=== PATIENT | female | born 1960 | race Caucasian/White ===

== ENCOUNTER 2019-03-10 11:14 | Inpatient (IN) | payer OTHER ==
[2019-03-03 14:49] VITALS: BMI 25.6
--- NOTE | 2019-03-07 15:59 | HP ---
Admitting History and Physical - Primary Care Physician PCP: Giuliano White - Admission Chief Complaint: Left breast cancer History of Present Illness: 58 year old postmenapausal Ashkenazi female and sephartic heritage who had changes in her left nipple and was seen by master certified rv technician and was treated with a cream. 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 She had breast MRI 01/25/2019 showing left breast enhancements and MRI core biopsies revealed 1:00 showing PASH and 4:00 benign UDH. This was reviewed by our pathologist and confirmed this was a Pagets and was ER/DE negative and HER2 3+. Myrisk was negative. History Source: Patient Limitations to Obtaining History: No Limitations - Past Medical History Endocrine: Yes: Other (hashimotos) Additional Past Medical History: Mohs surgery basal cell forehead - Past Surgical History Additional Past Surgical History: unilateral oophorectomy benign 2001 - Smoking History Smoking history: Never smoked Have you smoked in the past 12 months: No - Alcohol/Substance Use Hx Alcohol Use: Yes (social) Home Medications - Allergies Allergies/Adverse Reactions: Allergies Allergy/AdvReac Type Severity Reaction Status Date / Time Penicillins Allergy Verified 01/27/19 11:39 - Home Medications Home Medications: Ambulatory Orders Levothyroxine [Synthroid -] 50 mcg PO DAILY 03/03/19 Family Medical History Other Family History: mother bladder ca 62. pat GF throat ca. mat uncle lung ca 75. mat GM melanoma 70. mat uncle melanoma 65 Physical Examination Constitutional: Yes: Well Nourished Breast(s): Yes: Other (C cup sized breasts no palpable masses bilaterally or adenopathy post bx changes from biopsies left breast residual scarring left nipple from biopsy but on signs of pagets dz such as redeness or scaling) Problem List - Problems (1) Breast cancer, left breast Code(s): C50.912 - MALIGNANT NEOPLASM OF UNSPECIFIED SITE OF LEFT FEMALE BREAST Qualifiers: Breast location: nipple Estrogen receptor status: negative Patient sex: female Qualified Code(s): C50.012 - Malignant neoplasm of nipple and areola, left female breast; Z17.1 - Estrogen receptor negative status [ER-] Assessment/Plan Bilateral total mastectomies, left sentenel node biopsy ,lymphoscintogram , posible axillary node dissection, implants and alloderm reconstruction
[2019-03-10] MEDS ORDERED: GENTAMICIN SO4 80 MG/2 ML VIAL ONE (13:26)
[2019-03-10] MEDS ORDERED: BUPIVACAINE HCL/PF 2.5 MG/ML - 30 ML VIAL IJ ONE (13:26)
[2019-03-10] MEDS ORDERED: ceFAZolin SODIUM 1 GM VIAL ONE ×2 (13:26→16:37)
[2019-03-10] MEDS ORDERED: LIDOCAINE HCL 1% PRESERVATIVE FREE - 30ML VIAL ONE (13:27)
[2019-03-10] MEDS ORDERED: BUPIVACAINE LIPOSOME/PF (EXPAREL) 266 MG/20 ML VIAL ONE (13:30)
[2019-03-10] MEDS ORDERED: SODIUM CHLORIDE 0.9% P/F 10 ML VIAL IJ ONE (13:31)
[2019-03-10] MEDS ORDERED: ROCURONIUM BROMIDE 50 MG/5 ML SYRINGE ONE (14:33)
[2019-03-10] MEDS ORDERED: LIDOCAINE HCL/PF 2% SDV 5ML VIAL ONE ×2 (14:33→16:37)
[2019-03-10] MEDS ORDERED: SUCCINYLCHOLINE CHLORIDE 200 MG/10 ML SYRINGE ONE (14:33)
[2019-03-10] MEDS ORDERED: MIDAZOLAM HCL 2 MG/2 ML SINGLE DOSE VIAL ONE (14:33)
[2019-03-10] MEDS ORDERED: PROPOFOL 20 ML ONE ×3 (14:33)
[2019-03-10] MEDS ORDERED: fentaNYL CITRATE 250 MCG/5 ML VIAL ONE (14:33)
[2019-03-10] MEDS ORDERED: ISOSULFAN BLUE 10 MG/ML VIAL SQ ONE (15:59)
[2019-03-10] MEDS ORDERED: ePHEDrine SULFATE 50 MG/1 ML AMPULE ONE (16:13)
[2019-03-10] MEDS ORDERED: KETOROLAC TROMETHAMINE 30 MG/1 ML VIAL ONE (16:37)
[2019-03-10] MEDS ORDERED: DEXAMETHASONE SOD PHOSPHATE 4 MG/1 ML VIAL ONE (16:37)
[2019-03-10] MEDS ORDERED: ONDANSETRON 4 MG/2 ML VIAL ONE (16:37)
[2019-03-10] MEDS ORDERED: LIDOCAINE HCL 2% JELLY (5 ML/TUBE) ONE (16:37)
[2019-03-10] MEDS ORDERED: ONDANSETRON 4 MG/2 ML VIAL IVPUSH PRN ×3 (17:38→18:37)
[2019-03-10] MEDS ORDERED: ZOLPIDEM TARTRATE 5 MG TABLET PO PRN (17:39)
[2019-03-10] MEDS ORDERED: oxyCODONE HCL 5 MG TABLET PO PRN ×3 (17:39→18:37)
[2019-03-10] MEDS ORDERED: ACETAMINOPHEN 325 MG TABLET (FP) PO PRN ×2 (17:39→17:46)
[2019-03-10] MEDS ORDERED: diazePAM 5 MG TABLET PO PRN (17:41)
[2019-03-10] MEDS ORDERED: DEXTROSE 5%-0.45% SALINE 1,000 ML IV SCH (17:45)
[2019-03-10] MEDS ORDERED: NEOSTIGMINE METHYLSULFATE 0.5 MG/ML - 10 ML MDV ONE (17:56)
[2019-03-10] MEDS ORDERED: CLINDAMYCIN 300 MG PREMIX IVPB 300 MG/50 ML BAG IVPB SCH (18:00)
[2019-03-10] MEDS ORDERED: GLYCOPYRROLATE 0.2 MG/1 ML VIAL ONE (18:12)
--- NOTE | 2019-03-10 18:33 | OP ---
Operative Note - Note: Operative Date: 03/10/19 Pre-Operative Diagnosis: bilateral breast cancer Operation: bilateral mastectomy with left sentinel node biopsy, breast reconstruction with implants and ADN Surgeon: Uli Colon Electrical Parts Reconditioner: Chanel Beth Anesthesiologist/PROSPECT MANAGER: Shlomo Asher Anesthesia: General Estimated Blood Loss (mls): 30 Fluid Volume Replaced (mls): 1,000 Operative Report Dictated: Yes
[2019-03-10] MEDS ORDERED: PROMETHAZINE HCL 25 MG/1 ML VIAL IVPB PRN (18:37)
--- NOTE | 2019-03-10 18:38 | SURG ---
Surgery Stringed Instrument Tuner Note Stringed Instrument Tuner: Chanel Beth PA-C Date of Service: 03/10/19 Diagnosis: bilateral breast cancer Procedure: bilateral mastectomy with left sentinel node biopsy, breast reconstruction with implants and ADN I was present for the entirety of the operative procedure. For further detail, please refer to operative report. Visit type - Case Type Case Type: Scheduled - Emergency Emergency Visit: No - New patient This patient is new to me today: Yes Date on this admission: 03/10/19
--- NOTE | 2019-03-10 18:43 | OP ---
DATE OF OPERATION: 03/10/2019 PREOPERATIVE DIAGNOSIS: Left nipple Paget disease. POSTOPERATIVE DIAGNOSIS: Left nipple Paget disease. PROCEDURE: Bilateral total mastectomies with left axillary sentinel lymph node biopsy and bilateral direct implant reconstruction. ANESTHESIA: General endotracheal anesthesia. PRIMARY SURGEON: Giuliano White MD MANAGER MEMBERSHIP: DALLAS Browne Primary surgeon for the bilateral direct implant reconstruction is Dr. Giuliano Colon. There were no complications. Briefly, the patient is a 58-year-old, G3, P2, postmenopausal white female, with Ashkenazi and Sephardic Orthodoxy heritage. She has a family history of cancer, with her mother had bladder cancer at age 62 and a paternal grandfather who had throat cancer at age 62, her maternal uncle had lung cancer, and she has a maternal grandmother who had melanoma as well as maternal uncle who had melanoma. The patient noted some changes in the left nipple in June 2018 and was using topical creams. She eventually underwent a shave biopsy of the left nipple in December 2018, which showed Paget disease which was ER/VA negative. Slide review confirmed this. The patient underwent an MRI showing no other suspicious bindings. She was given the option of central wide excision, removing the nipple-areolar complex, but chose to undergo bilateral total mastectomies. She was seen by the plastic surgeon preoperatively and chose to have direct implant reconstructions. She understood the need to remove the nipple on the left side as well as a sentinel lymph node biopsy at the time of the mastectomy, and she chose to have a prophylactic contralateral right breast mastectomy despite the lack of any survival advantage. The patient was brought in for the procedure on March 10, 2019. She first went to [facility], where lymphoscintigraphy was performed with a periareolar injection of technetium-99 around the left breast nipple-areolar complex. She was then brought to the [place] holding area. In the holding area, site verification was made and informed consent was obtained. She was marked preoperatively by the plastic surgeon. She was brought in to the operating room and laid on the OR table in the supine position. Venodynes were placed on the lower extremities prior to induction. She received 2 g of Ancef prior to incision. Then 3 mL of Lymphazurin blue was injected intradermally around the left breast nipple-areolar complex. Massage was instituted. She was sterilely prepped and draped in the usual fashion and underwent general laryngeal mask airway anesthesia. Timeout was performed. At this point, the left axillary sentinel lymph node biopsy was first performed. Incision was made just below the hair-bearing area of the left axilla and dissection was undertaken and a blue lymphatic was easily seen coursing to a blue hot lymph node. This had a 10-second gamma count of 1063 and was sent for frozen section, came back negative. Background counts after removal of this one node was 53. Hemostasis was achieved. At this point, a total mastectomy was performed through an elliptical periareolar approach on the left breast nipple-areolar complex. Skin flap was raised, using the PEAK radiofrequency device, superiorly to the level of the clavicle, medially to the level of the sternum, laterally to the level of the latissimus, and inferiorly below the level of the inframammary fold. The breast was taken down off the pectoralis major muscle from medial to lateral using electrocautery and completely removed intact. It was oriented with a long lateral and short superior suture and weighed to allow for appropriate cosmetic result. No specimen x-ray was performed since there was no clip in the breast. Hemostasis was achieved and the skin flaps were trimmed for good cosmetic result. The wound was copiously irrigated with warm sterile saline. At this point, instruments and gloves were changed and the right breast was approached. Again, an elliptical incision was made around the nipple-areolar complex to perform the mastectomy. On the right side, a little more skin was removed due to some asymmetry, with the right breast being larger than the left. Again, skin flap was raised using the PEAK radiofrequency device, raising the skin flap superiorly to the level of the clavicle, medially to the level of the sternum, laterally to the level of the latissimus, and inferiorly to the level of the inframammary fold. The breast was taken down off the pectoralis major muscle using electrocautery from medial to lateral and completely removed intact. It was oriented with a long lateral and short superior suture and weighed to allow for appropriate cosmetic result. Hemostasis was achieved and the skin flaps were trimmed for good cosmetic result. At this point, Dr. Colon became the primary surgeon and performed bilateral direct implant reconstruction using acellular dermal matrix. This will be dictated separately by Dr. Colon. Drains will be placed around each implant and brought through separate stab incisions on the lateral skin flaps and secured in place using 3-0 nylon suture. All wounds will be closed separately by Plastic Surgery using absorbable monofilament suture. All sponge and needle counts were correct at this point in the case. Estimated blood loss was about 100 mL. She was hemodynamically stable throughout the case. The patient will be recovered in the post-anesthesia care unit and then will be admitted postoperatively for pain management and wound management. We did use a SPY skin perfusion device during the case, which showed good skin perfusion on both mastectomy skin flaps. Sadaf [id number]
[2019-03-10] MEDS ORDERED: HYDROmorphone HCL CARPU-JECT 1 MG/1 ML DISP.SYRIN ONE (19:45)
[2019-03-10] MEDS ORDERED: FAMOTIDINE 20 MG/50 ML IVPB 20 MG/50 ML MG IVPB ONE (19:55)
[2019-03-10] MEDS ORDERED: HYDROmorphone HCL CARPU-JECT 1 MG/1 ML DISP.SYRIN IVPUSH ONE (19:55)
[2019-03-10] MEDS ORDERED: DEXAMETHASONE SOD PHOSPHATE 4 MG/1 ML VIAL IVPUSH ONE ×2 (19:55)
[2019-03-10] MEDS ORDERED: FAMOTIDINE 20 MG PREMIXED IVPB IVPB ONE (20:00)
[2019-03-10] MEDS: oxyCODONE HCL 5 MG TABLET PO PRN (21:15)
[2019-03-10] MEDS: CLINDAMYCIN 300 MG PREMIX IVPB 300 MG/50 ML BAG IVPB SCH (21:16)
[2019-03-10] MEDS: DEXTROSE 5%-0.45% SALINE 1,000 ML IV SCH (21:16)
[2019-03-11] MEDS: CLINDAMYCIN 300 MG PREMIX IVPB 300 MG/50 ML BAG IVPB SCH ×3 (05:00→20:17)
[2019-03-11] MEDS: ACETAMINOPHEN 325 MG TABLET (FP) PO PRN ×2 (08:04→17:40)
[2019-03-11] MEDS: HEPARIN NA (PORCINE) 5,000 UNITS/ML 1ML VIAL SQ SCH ×3 (08:04→21:47)
[2019-03-11] MEDS: oxyCODONE HCL 5 MG TABLET PO PRN ×4 (08:06→21:42)
[2019-03-11 08:12] LABS: HEMATOCRIT 29.8 % (32.4-45.2); HEMOGLOBIN 10.2 GM/dl (10.7-15.3); MCH 31.9 pg (25.7-33.7); MCHC 34.3 g/dl (32.0-36.0); MEAN CELL VOLUME 93.1 fl (80-96); MEAN PLT VOLUME 7.9 fl (7.5-11.1); PLATELET COUNT 283 K/MM3 (134-434); RDW 12.7 % (11.6-15.6); WHITE BLOOD COUNT 11.1 K/mm3 (4.0-10.8)
--- NOTE | 2019-03-11 08:30 | PN ---
Progress Note (short form) - Note Progress Note: POD 1, s/p bilateral mastectomies with left sentinel node biopsy, breast reconstruction with implants and ADN Pt seen and examined. Reports pain well controlled overnight. Tolerated small amounts of food with no emesis. Has been oob to restroom voiding without issue. Denies cp/sob, calf pain. Vital Signs Temp 98.5 F 03/11/19 05:00 Pulse 57 L 03/11/19 05:00 Resp 18 03/11/19 05:00 BP 107/50 L 03/11/19 05:00 Pulse Ox 96 03/11/19 05:00 Intake & Output 03/10/19 03/10/19 03/11/19 11:59 23:59 11:59 Intake Total 1700 1300 Output Total 150 90 Balance 1550 1210 Weight 127 lb Intake: IV 1700 1200 D5-1/2Ns - 1,000 ml @ 100 1200 mls/hr IV ASDIR JESÚS Rx#: [id number] IVPB 100 Output: Drainage 150 90 OPAL#1 40 OPAL#2 20 OPAL#3 30 OPAL#4 0 Urine 0 Other: Voiding Method Bedpan # Unmeasured Voids Void 1 Height 4 ft 11 in Body Mass Index (BMI) 25.6 Weight Measurement Method Standing Scale CBC, BMP 03/11/19 06:55 Gen: awake, alert, nad, mom at bedside Resp: Unlabored on RA Chest: Dressings/bra c/d/i, b/l breasts with +ecchymosis/edema, + ttp, vertical crease steristrips intact with no erythema or drainage. Jps in place, minimal serosanguinous drainage in reservoir, tubing stripped. A/P: 58 y/o Ashkenazi F w/ PMHx lissette's, Pagets dz ER/IL negative and HER2 3 +, now POD 1, s/p bilateral mastectomies with left sentinel node biopsy, breast reconstruction with implants and ADN Pain controlled Exam stable Opal outputs #1 40ml overnight #2 20ml overnight #3 30ml overnight #4 0ml overnight -Labs stable -Pain control as ordered -Monitor and record drain outputs -Keep bra/dressings c/d/i -Remainder of care per Dr White d/w attending Dr Colon
--- NOTE | 2019-03-11 09:37 | PN ---
Progress Note, Physician Chief Complaint: Left breast cancer/pagets S/P bilateral total mastectomies with implant and alloderm reconstruction POD#! History of Present Illness: patient is eating amall amounts OOB to bathroom, oxyxodone and valium prn pain - Current Medication List Current Medications: Active Medications Acetaminophen (Tylenol -) 650 mg PO Q4H PRN PRN Reason: FEVER Last Admin: 03/11/19 08:04 Dose: 650 mg Acetaminophen (Tylenol -) 650 mg PO Q4H PRN PRN Reason: MILD PAIN Diazepam (Valium -) 5 mg PO Q8H PRN PRN Reason: WITHDRAWAL(CONT SUBST) Diphenhydramine HCl (Benadryl Injection -) 50 mg IVPUSH ONCE PRN PRN Reason: ALLERGIES Heparin Sodium (Porcine) (Heparin -) 5,000 unit SQ BID JESÚS Last Admin: 03/11/19 08:04 Dose: 5,000 unit Dextrose/Sodium Chloride (D5-1/2ns -) 1,000 mls @ 100 mls/hr IV ASDIR JESÚS Last Admin: 03/10/19 21:16 Dose: 100 mls/hr Clindamycin Phosphate (Cleocin 300 Mg Premix Ivpb) 300 mg in 50 mls @ 100 mls/ hr IVPB Q8H JESÚS; Protocol Last Admin: 03/11/19 05:00 Dose: 100 mls/hr Levothyroxine Sodium (Synthroid -) 50 mcg PO DAILY [facility] Oxycodone HCl (Roxicodone -) 5 mg PO Q4H PRN PRN Reason: PAIN LEVEL 1-5 Oxycodone HCl (Roxicodone -) 10 mg PO Q4H PRN PRN Reason: PAIN LEVEL 6-10 Last Admin: 03/11/19 08:06 Dose: 10 mg Promethazine HCl (Phenergan Injection -) 12.5 mg IVPB Q6H PRN PRN Reason: NAUSEA-FOR RESCUE AFTER 15 MIN - Objective Vital Signs: Vital Signs Temperature 98.5 F 03/11/19 05:00 Pulse Rate 57 L 03/11/19 05:00 Respiratory Rate 16 03/11/19 08:51 Blood Pressure 107/50 L 03/11/19 05:00 O2 Sat by Pulse Oximetry (%) 96 03/11/19 08:51 Constitutional: Yes: No Distress Breast(s): Yes: Other (Breast flaps viable no signs of infection or expanding hematoma, minimal echymosis, incision intact with steristrips OPAL drains functioning well dressings changed) Labs: CBC, BMP 03/11/19 06:55 Problem List - Problems (1) Breast cancer, left breast Code(s): C50.912 - MALIGNANT NEOPLASM OF UNSPECIFIED SITE OF LEFT FEMALE BREAST Qualifiers: Breast location: nipple Estrogen receptor status: negative Patient sex: female Qualified Code(s): C50.012 - Malignant neoplasm of nipple and areola, left female breast; Z17.1 - Estrogen receptor negative status [ER-] Assessment/Plan Iv antibiotics spirometry SCD SQ heparin oxycodone/tylenol/valium plan for discharge tomorrow
[2019-03-11] MEDS: LEVOTHYROXINE NA 50 MCG TABLET (FP) PO SCH (10:27)
--- NOTE | 2019-03-11 12:08 | PN ---
Progress Note (short form) - Note Progress Note: ANESTHESIA POSTOP 58 YO FEMALE POD#1 S/P MASTECTOMY WITH RECONSTRUCTION, GETA Patient resting in bed. Painful with movement. VSS, Afebrile, rash resolved R forearm Continue current care, Encouraged IS, discussed possibility of allergic reaction to ondansetron for future reference.
[2019-03-11] MEDS: DEXTROSE 5%-0.45% SALINE 1,000 ML IV SCH (17:45)
[2019-03-12 02:02] VITALS: TEMP 99
[2019-03-12] MEDS: CLINDAMYCIN 300 MG PREMIX IVPB 300 MG/50 ML BAG IVPB SCH (05:49)
[2019-03-12] MEDS: oxyCODONE HCL 5 MG TABLET PO PRN ×2 (06:12→10:14)
[2019-03-12 06:54] VITALS: BP 116/54; PULSE 65
[2019-03-12] MEDS: LEVOTHYROXINE NA 50 MCG TABLET (FP) PO SCH (10:13)
[2019-03-12] MEDS: HEPARIN NA (PORCINE) 5,000 UNITS/ML 1ML VIAL SQ SCH (10:15)
--- NOTE | 2019-03-13 16:02 | OP ---
DATE OF OPERATION: 03/10/2019 SURGEON: Karen Colon MD HULL INSPECTOR: DALLAS Cho PREOPERATIVE DIAGNOSES: 1. Left breast carcinoma. 2. Bilateral acquired chest wall deformity, status post bilateral mastectomy. POSTOPERATIVE DIAGNOSES: 1. Left breast carcinoma. 2. Bilateral acquired chest wall deformity, status post bilateral mastectomy. PROCEDURE: 1. Right immediate breast reconstruction utilizing immediate insertion of silicone breast implant and Cortiva reconstruction. 2. Left immediate breast reconstruction utilizing immediate insertion of silicone breast implant and Cortiva reconstruction. 3. Intravenous injection of indocyanine green dye and intraoperative diagnostic evaluation of non-coronary intraoperative fluorescein vascular angiography x 2. ANESTHESIA: GENERAL OPERATIVE INDICATION: The patient is a 58-year-old woman, who was brought to the operating room by Dr. Karen White for a combined procedure with implant and acellular dermal matrix. OPERATIVE PROCEDURE IN DETAIL: The patient was taken to the operating room. After induction of general anesthesia in the supine position, both arms were extended and padded. Venodyne boots were placed. The entire chest wall was painted with ChloraPrep solution over its entire extent, and sterile drapes were placed in the usual fashion. The markings, which had been made in the standing position preoperatively, were reoutlined with the patient's knowledge. Time-out procedure was performed. Attention was turned by Dr. White to the mastectomies. Bilateral inframammary incisions were made and Dr. White performed mastectomies. This will be dictated under separate cover. Upon completion of the mastectomies, the wounds were copiously irrigated and attention was turned to the right breast. A subpectoral dissection was begun on the right breast, superiorly from the second rib, medially to the sternal fibers, and down to the inframammary fold, elevating the pectoralis major muscle from its insertion. At this point, an 8.0 x 16.0 sheet of Cortiva 1-mm tailored allograft dermis, large size, was brought into the field and sutured superiorly along the pectoralis major muscle after rehydration. This was carried along the lateral mammary fold and down the side of the breast reconstruction. At this point, a Sientra high-profile, smooth, round, 505 mL implant was chosen. The left breast tissue removed was 506 gm, and the right breast approximately 599 gm. This implant was placed and then sutured with 3-0 Vicryl suture continued along the inframammary fold, completely covering the implant itself. The exact same procedure was carried out symmetrically on the opposite breast, also placing a Sientra high-profile, smooth, round, 505 mL implant in the same subpectoral pocket. Good symmetry was seen in the sitting position. After the implants were in place, the patient was injected with 10 mL of Isocyanide green dye and the Spy imaging system was brought into the field. The skin flowed to the right and left breasts and the nipple areolar complex, and the entire skin flaps were evaluated and seen to be viable with good blood flow. Two 15 Kun drains were brought out through separate stab wounds laterally. The Smart Infuser pump catheter was inserted medially and into the subpectoral position. Both wounds were closed symmetrically using 3-0 PDS suture on the deep tissue, 3-0 in a deep dermal fashion, and 4-0 in a subcuticular fashion. Both wounds were dressed sterilely with Mastisol and Steri-Strips with a surgical bra and a compression strap. The patient tolerated the procedure well. She was awakened, extubated and transferred to the recovery room in satisfactory condition. The assistant store manager operations was present during the entire portion of the operation and closure. KAREN COLON M.D. ROXANE/[id number]
--- NOTE | 2019-03-16 15:40 | PATH ---
Surgical Pathology Report Patient Name: ALEJANDRA GILLESPIE Med. Rec. #: [id number] /Age/Gender: 1960 (Age: 58) / F Account: [id number] Location: [facility] MED-SURG Taken: 03/10/2019 Received: 03/10/2019 Reported: 03/16/2019 Physicians: Giuliano White M.D. Specimen(s) Received A: LEFT BREAST SENTINEL NODE #1 (FS) B: RIGHT BREAST MASTECTOMY C: LEFT BREAST MASTECTOMY Clinical History Left nipple Paget's disease. Mastectomy: left- Paget's, DCIS; right-prophylactic Intraoperative Consult Diagnosis A.Left breast sentinel node #1, frozen section: One negative lymph node (0/1). Sadaf Coker 03/10/19 Final Diagnosis A. lymph node, left sentinel #1, excision (FS): One lymph node, negative for metastatic carcinoma (0/1). B. breast, right, total mastectomy: Benign breast tissue. Nipple AND SKIN with no pathologic findings. C. breast, left, total mastectomy: Paget's disease of nipple (see note) Focal ductal carcinoma in situ (DCIS), Solid type, HIGH nuclear grade with focal necrosis, present in A lactiferous duct of nipple. DCIS is present in one of nineteen slides (/). Surgical margins AND SKIN are uninvolved by DCIS. (See note). Remaining breast tissue shows focal atypical ductal hyperplasia (ADH), cystic apocrine metaplasia, columnar cell change and stromal fibrosis. Prior biopsy site changes are identified. Pathologic stage (pTNM): pTis (dcis) pN0. see also DCIS case summary below. Note: The malignant cells of Paget's disease of nipple are positive for cytokeratin (AE1/3); this finding supports the diagnosis. See also complete immunohistochemical work-up for Paget's disease in prior left nipple shave biopsy from outside institution ([id number]/ our slide review case # [id number]). The focus of DCIS is present in a section of dermis of nipple with Paget's disease; no DCIS is present in the remaining breast tissue, including sections representing anterior soft tissue and deep margins. Comments DCIS of the Breast: Surgical Pathology Cancer Case Summary (Based on AJCC TNM 8 th edition) Procedure _X_ Total mastectomy Specimen Laterality _X_ Left Size (Extent) of DCIS Estimated size (extent) of DCIS (greatest dimension using gross and microscopic evaluation): at least (millimeters) 1.6 mm Number of blocks with DCIS: 1 Number of blocks examined: 19 Histologic Type _X_ Ductal carcinoma in situ _X_ Paget disease Architectural Patterns _X_ Paget disease (DCIS involving nipple skin) _X_ Solid Nuclear Grade _X_ Grade III (high) Necrosis _X_ Present, focal (small foci or single cell necrosis) Margins _X_ Uninvolved by DCIS Distance from closest margin (millimeters): cannot be determined (the focus of DCIS is present in a section of dermis of nipple with Paget's disease; no DCIS is present in the remaining breast tissue, including sections representing anterior soft tissue and deep margins). Regional Lymph Nodes _X_ Uninvolved by tumor cells Pathologic Stage Classification (pTNM, AJCC 8th Edition) Primary Tumor (pT) _X_ pTis (DCIS): Ductal carcinoma in situ Regional Lymph Nodes (pN) _X_ pN0 Microcalcifications _X_ Present in nonneoplastic tissue Biomarker Studies Results of ER and DE studies performed on this specimen (block C1) at [facility] are as follows: ER (clone [id number] mouse monoclonal antibody by [employer]): 0 % nuclear staining (negative). DE (clone16 mouse monoclonal antibody by [employer]): 0 % nuclear staining (negative). Positive and negative controls (internal if applicable) show appropriate results. Formalin fixation and cold ischemic times are within current ASCO/CAP recommendations for ER, DE and Her2 testing. Electronically Signed Noni Connolly M.D. Gross Description A. Received fresh for frozen section evaluation, labeled "left breast, sentinel node #1" is a 0.8 x 0.5 x 0.3 cm lymph node with attached fatty tissue. The lymph node is bisected and frozen section is performed on the lymph node. The frozen section residue is entirely submitted in one cassette. B. Received in formalin, labeled "right breast, mastectomy" is a 17.2 x 13.5 x 4.5 cm, right breast, mastectomy specimen. A long suture designates the lateral margin and a short suture indicates the superior margin, per the surgeon. The anterior aspect shows a 10.2 x 5.2 cm ellipse of light cohen skin with a nipple having a diameter of 1.0 cm. No lesions are identified on the nipple or skin. Also received is a separate portion of fibroadipose tissue measuring 7.8 x 6.2 x 1.5 cm. The anterior soft tissue margin is inked blue and the deep margin is inked black. Sectioning reveals predominantly adipose tissue with few white fibrotic foci and streaks. [employer] sections are submitted in ten cassettes as follows: 1, 2-nipple; 3-5-upper outer quadrant; 6-lower inner quadrant; 7, 8-, upper inner quadrant; 9-lower inner quadrant; 10-skin. C. Received in formalin, labeled "left breast, mastectomy" is a 21.3 x 19.5 x 3.2 cm left breast mastectomy specimen. A long suture designates the lateral margin and a short suture indicates the superior margin, per the surgeon. The anterior aspect shows a 5 x 2.8 cm ellipse of light cohen skin with nipple having a diameter of 1.0 cm. The nipple appears focally crusted. No lesions are identified on the skin. The anterior soft tissue margin is inked blue and the deep margin is inked black. Sectioning reveals foci of nodular fibrous tissue present in the upper outer quadrant (UOQ) and lower outer quadrant (LOQ). No mass lesions are identified. The remainder of the breast tissue is comprised predominantly of adipose tissue with white fibrotic foci and streaks. [employer] sections are submitted in 19 cassettes as follows: 1-3- nipple; 4,5-areola and skin; 6-9-fibrous foci in UOQ; 10-16- fibrous foci in LOQ; 17-upper inner quadrant (UIQ); 18-lower inner quadrant (LIQ); 19-deep margin. Time to formalin fixation: 20 minutes. Total formalin fixation time: Approximately 27 hours [facility]/03/11/2019
== END 2019-03-12 14:41 | disposition home or self-care (01) | DRG 581 ==
LOC: FASUSAT 11:14 → EDSTATUS 11:30 → FM/S 18:56
PROVIDERS: ADMIT Internal Medicine; ATTEND Surgery Surgical Oncology
PROC: 4A1GXSH Monitoring of Skin and Breast Vascular Perfusion using Indocyanine Green Dye, External Approach (ICD-10-PCS; 2019-03-10)
PROC: 0HTV0ZZ Resection of Bilateral Breast, Open Approach (ICD-10-PCS; principal; 2019-03-10 16:15)
PROC: 07B60ZZ Excision of Left Axillary Lymphatic, Open Approach (ICD-10-PCS; 2019-03-10 16:15)
PROC: 0HRV0JZ Replacement of Bilateral Breast with Synthetic Substitute, Open Approach (ICD-10-PCS; 2019-03-10 16:15)
DX: C50.012 Malignant neoplasm of nipple and areola, left female breast (principal); Z17.1 Estrogen receptor negative status [ER-]; E06.3 Autoimmune thyroiditis; Z40.01 Encounter for prophylactic removal of breast; M95.4 Acquired deformity of chest and rib
CPT/HCPCS: 36415; 78195-TC; 85027; 88307-TC; 88331-TC; 88342-TC; 94760; A9541; J1644